=== PATIENT | male | born 1995 | race Caucasian/White ===

== ENCOUNTER → 2021-09-23 | Outpatient (REF) | LOC: M PLAIMG 11:34 | PROVIDERS: ATTEND Internal Medicine | DX: M25.569 Pain in unspecified knee (principal); M79.669 Pain in unspecified lower leg ==

== ENCOUNTER 2022-02-25 13:51 | Emergency (ER) | payer OTHER ==
[~2022-02-25] VITALS: Ht 175.3 cm; Wt 74.1 kg
[2022-02-25] MEDS ORDERED: DERMABOND TOPICAL SKIN ADHESIVE TOP ONE (17:40)
[2022-02-25] MEDS ORDERED: CEPH500C PO (18:06)
[2022-02-25 18:11] VITALS: BP 118/78
== END 2022-02-25 18:27 | disposition home or self-care (01) ==
LOC: M ED 13:51
DX: S91.115A Laceration without foreign body of left lesser toe(s) without damage to nail, initial encounter (principal); W26.8XXA Contact with other sharp object(s), not elsewhere classified, initial encounter; Y92.018 Other place in single-family (private) house as the place of occurrence of the external cause; Z88.0 Allergy status to penicillin

== ENCOUNTER 2023-05-31 18:14 | Emergency (ER) | payer OTHER ==
[~2023-05-31] VITALS: Ht 175.3 cm; Wt 77.8 kg
[~2023-05-31 18:14] MED LIST: CEPH500C PO
[2023-05-31] MEDS ORDERED: IBUP200C25 PO (18:23)
[2023-05-31] MEDS ORDERED: ACETAMINOPHEN TAB 650MG DOSE (2X325MG) PO ONE (22:25)
[2023-05-31 22:46] LABS: BASO # 0.1 10^3/uL (0.0-0.2); BASO % 0.7 % (0.0-1.0); EOS # 0.1 10^3/uL (0.0-0.5); EOS % 1.6 % (0.0-3.0); HEMATOCRIT 40.1 % (42.0-52.0); LYMPH # 2.7 10^3/uL (1.5-5.0); MEAN CORPUSCULAR HEMOGLOBIN 27.6 pg (27.0-33.0); MEAN CORPUSCULAR HGB CONC 32.4 g/dl (32.0-36.5); MEAN CORPUSCULAR VOLUME 85.1 fl (80.0-96.0); MONO # 0.7 10^3/uL (0.0-0.8); MONO % 8.8 % (2.0-8.0); NEUTROPHILS # 4.5 10^3/uL (1.5-8.5); NEUTROPHILS % 55.8 % (36.0-66.0); PLATELET COUNT, AUTOMATED 294 10^3/uL (150-450); RED BLOOD COUNT 4.71 10^6/uL (4.30-6.10); WHITE BLOOD COUNT 8.1 10^3/uL (4.0-10.0)
[2023-05-31] MEDS ORDERED: ISOVUE-370 76% 100ML VIAL As Ordered ONE (22:54)
[2023-05-31 23:39] VITALS: BP 120/66; TEMP 97.7; O2SAT 99
== END 2023-06-01 00:16 | disposition home or self-care (01) ==
LOC: M ED 18:14
DX: S20.219A Contusion of unspecified front wall of thorax, initial encounter (principal); X50.0XXA Overexertion from strenuous movement or load, initial encounter; G40.909 Epilepsy, unspecified, not intractable, without status epilepticus; Z88.0 Allergy status to penicillin; Y92.9 Unspecified place or not applicable; Y93.9 Activity, unspecified; Y99.9 Unspecified external cause status; Z79.1 Long term (current) use of non-steroidal anti-inflammatories (NSAID)
CPT/HCPCS: 36415; 71101; 71275; 74177; 80047; 85025; 99284; Q9967